=== PATIENT | female | born 2000 ===

== ENCOUNTER 2018-01-11 12:49 | Inpatient (IN) | payer MEDICAID ==
[~2018-01-11] VITALS: Ht 152.4 cm; Wt 43.6 kg
[2018-01-11 13:46] LABS: BASOPHIL % 0.1 % (0-2)
[2018-01-11 13:52] LABS: CALCIUM 9.7 mg/dL (8.5-10.1); CARBON DIOXIDE 27.4 mmol/L (21-32); CHLORIDE SERUM 94 mmol/L (98-107); CREATININE SERUM 0.8 mg/dL (0.6-1.0); GFR1 > 60 mL/min; GLUCOSE SERUM 98 mg/dL (74-106); POTASSIUM SERUM 3.1 mmol/L (3.5-5.1); SODIUM SERUM 136 mmol/L (136-145)
[2018-01-11 13:57] LABS: PLATELET COUNT 727 x10^3mcL (130-400); RED CELL DISTRIBUTION WIDTH 15.4 % (11.5-14.5)
[2018-01-11 13:59] LABS: ALBUMIN 3.8 g/dL (3.4-5.0); ALKALINE PHOSPHATASE 168 U/L (46-116); ALT/SGPT 46 U/L (14-59); AST/SGOT 71 U/L (15-37); BILIRUBIN TOTAL 0.4 mg/dL (0.20-1.00); LIPASE 85 IU/L (73-393); TOTAL PROTEIN, SERUM 8.6 g/dL (6.4-8.2)
[2018-01-11] MEDS ORDERED: PLAQUENIL200 MG PO (15:58)
[2018-01-11] MEDS ORDERED: PREDNISONE20 MG PO (15:58)
[2018-01-11 16:15] LABS: UA SPECIFIC GRAVITY >=1.030 (1.005-1.035); microscopic required? YES; urine erythrocyte 3+ (NEGATIVE)
[2018-01-11] MEDS ORDERED: IMURAN50 MG PO (16:41)
[2018-01-11 17:36] LABS: FREE T4 1.42 ng/dL (0.76-1.46); FREE THYROXINE INDEX 3.8 ug/dL (1.4-4.5); T4(THYROXINE) 10.6 ug/dL (4.7-13.3)
[2018-01-11 17:38] LABS: CHOLESTEROL/HDL RATIO 3.6; MAGNESIUM 2.6 mg/dL (1.8-2.4); PHOSPHOROUS 3.1 mg/dL (2.5-4.9)
[2018-01-11 18:27] VITALS: BP 112/73
[2018-01-11 20:25] LABS: AMPHETAMINE QUAL UR NONE DETECTED (NEG <=1000)
[2018-01-11 21:31] VITALS: BP 125/76
[2018-01-12 06:00] VITALS: BP 99/59
[2018-01-12 06:57] LABS: BASOPHIL % 0 % (0-2); RED CELL DISTRIBUTION WIDTH 15.5 % (11.5-14.5)
[2018-01-12 06:58] LABS: PLATELET COUNT 638 x10^3mcL (130-400)
[2018-01-12 06:59] LABS: CALCIUM 8.5 mg/dL (8.5-10.1); CARBON DIOXIDE 23.4 mmol/L (21-32); CHLORIDE SERUM 102 mmol/L (98-107); CREATININE SERUM 0.9 mg/dL (0.6-1.0); GFR1 > 60 mL/min; GLUCOSE SERUM 98 mg/dL (74-106); MAGNESIUM 2.4 mg/dL (1.8-2.4); PHOSPHOROUS 2.7 mg/dL (2.5-4.9); POTASSIUM SERUM 3.6 mmol/L (3.5-5.1); SODIUM SERUM 139 mmol/L (136-145)
[2018-01-12 08:05] VITALS: Ht 152.4 cm; Wt 43.6 kg
[2018-01-12 09:50] VITALS: BP 112/73
[2018-01-12 13:29] VITALS: BP 122/80
[2018-01-12 16:30] VITALS: BP 110/62
[2018-01-12 20:59] VITALS: BP 125/59
[2018-01-13 05:08] VITALS: BP 112/73
[2018-01-13 06:45] LABS: BASOPHIL % 0 % (0-2); PLATELET COUNT 623 x10^3mcL (130-400); RED CELL DISTRIBUTION WIDTH 15.6 % (11.5-14.5)
[2018-01-13 06:52] LABS: CALCIUM 8.5 mg/dL (8.5-10.1); CARBON DIOXIDE 23.2 mmol/L (21-32); CHLORIDE SERUM 106 mmol/L (98-107); CREATININE SERUM 0.7 mg/dL (0.6-1.0); GFR1 > 60 mL/min; GLUCOSE SERUM 110 mg/dL (74-106); POTASSIUM SERUM 3.1 mmol/L (3.5-5.1); SODIUM SERUM 142 mmol/L (136-145)
[2018-01-13 09:45] VITALS: BP 118/76
[2018-01-13 13:33] VITALS: BP 117/65
[2018-01-13 17:46] VITALS: BP 115/71
[2018-01-13 20:47] VITALS: BP 109/68
[2018-01-13 20:48] VITALS: BP 109/68
[2018-01-14 06:02] VITALS: BP 106/72
[2018-01-14 07:34] LABS: BASOPHIL % 0 % (0-2); PLATELET COUNT 604 x10^3mcL (130-400); RED CELL DISTRIBUTION WIDTH 16.1 % (11.5-14.5)
[2018-01-14 07:47] LABS: CALCIUM 8.4 mg/dL (8.5-10.1); CARBON DIOXIDE 24.4 mmol/L (21-32); CHLORIDE SERUM 106 mmol/L (98-107); CREATININE SERUM 0.7 mg/dL (0.6-1.0); GFR1 > 60 mL/min; GLUCOSE SERUM 102 mg/dL (74-106); SODIUM SERUM 140 mmol/L (136-145)
[2018-01-14 07:52] LABS: POTASSIUM SERUM 2.8 mmol/L (3.5-5.1)
[2018-01-14 08:54] VITALS: BP 115/78
[2018-01-14 13:01] VITALS: BP 112/61
[2018-01-14 16:38] LABS: CALCIUM 8.3 mg/dL (8.5-10.1); CARBON DIOXIDE 22.4 mmol/L (21-32); CHLORIDE SERUM 109 mmol/L (98-107); CREATININE SERUM 0.7 mg/dL (0.6-1.0); GFR1 > 60 mL/min; GLUCOSE SERUM 91 mg/dL (74-106); POTASSIUM SERUM 3.7 mmol/L (3.5-5.1); SODIUM SERUM 142 mmol/L (136-145)
[2018-01-14 17:16] VITALS: BP 121/81
[2018-01-14 20:38] VITALS: BP 112/70
[2018-01-15 05:41] VITALS: BP 113/74
[2018-01-15 06:32] LABS: CALCIUM 8.2 mg/dL (8.5-10.1); CARBON DIOXIDE 22.9 mmol/L (21-32); CHLORIDE SERUM 108 mmol/L (98-107); CREATININE SERUM 0.6 mg/dL (0.6-1.0); GFR1 > 60 mL/min; GLUCOSE SERUM 112 mg/dL (74-106); POTASSIUM SERUM 3.7 mmol/L (3.5-5.1); SODIUM SERUM 141 mmol/L (136-145)
[2018-01-15 07:13] LABS: BASOPHIL % 0 % (0-2); PLATELET COUNT 514 x10^3mcL (130-400); RED CELL DISTRIBUTION WIDTH 16.2 % (11.5-14.5)
[2018-01-15 09:57] VITALS: BP 113/76
[2018-01-15 12:53] VITALS: BP 119/84
[2018-01-15 16:54] VITALS: BP 114/75
[2018-01-15 19:47] VITALS: BP 109/75
[2018-01-16 06:08] VITALS: BP 118/76
[2018-01-16 06:53] LABS: CALCIUM 8.3 mg/dL (8.5-10.1); CARBON DIOXIDE 21.7 mmol/L (21-32); CHLORIDE SERUM 109 mmol/L (98-107); CREATININE SERUM 0.6 mg/dL (0.6-1.0); GFR1 > 60 mL/min; GLUCOSE SERUM 119 mg/dL (74-106); MAGNESIUM 2.2 mg/dL (1.8-2.4); PHOSPHOROUS 2.8 mg/dL (2.5-4.9); POTASSIUM SERUM 4.1 mmol/L (3.5-5.1); SODIUM SERUM 139 mmol/L (136-145)
[2018-01-16 07:36] LABS: BASOPHIL % 0 % (0-2); PLATELET COUNT 502 x10^3mcL (130-400); RED CELL DISTRIBUTION WIDTH 15.8 % (11.5-14.5)
[2018-01-16 09:55] VITALS: BP 119/78
[2018-01-16 17:24] VITALS: BP 117/79
[2018-01-16 21:03] VITALS: BP 133/85
[2018-01-16 21:05] VITALS: BP 121/76
[2018-01-17 04:48] VITALS: BP 118/72
[2018-01-17 06:19] LABS: CALCIUM 8.7 mg/dL (8.5-10.1); CARBON DIOXIDE 25.5 mmol/L (21-32); CHLORIDE SERUM 107 mmol/L (98-107); CREATININE SERUM 0.6 mg/dL (0.6-1.0); GFR1 > 60 mL/min; GLUCOSE SERUM 122 mg/dL (74-106); POTASSIUM SERUM 3.9 mmol/L (3.5-5.1); SODIUM SERUM 141 mmol/L (136-145)
[2018-01-17 07:03] LABS: BASOPHIL % 0.1 % (0-2)
[2018-01-17 07:12] LABS: PLATELET COUNT 522 x10^3mcL (130-400); RED CELL DISTRIBUTION WIDTH 15.7 % (11.5-14.5)
[2018-01-17 09:46] VITALS: BP 110/77
[2018-01-17 16:44] VITALS: BP 119/89
[2018-01-17 20:49] VITALS: BP 118/76
[2018-01-18 05:44] VITALS: BP 120/85
[2018-01-18 06:11] LABS: CALCIUM 8.5 mg/dL (8.5-10.1); CARBON DIOXIDE 23.5 mmol/L (21-32); CHLORIDE SERUM 108 mmol/L (98-107); CREATININE SERUM 0.6 mg/dL (0.6-1.0); GFR1 > 60 mL/min; GLUCOSE SERUM 107 mg/dL (74-106); POTASSIUM SERUM 3.9 mmol/L (3.5-5.1); SODIUM SERUM 141 mmol/L (136-145)
[2018-01-18 06:17] LABS: BASOPHIL % 0 % (0-2); RED CELL DISTRIBUTION WIDTH 15.4 % (11.5-14.5)
[2018-01-18 07:51] LABS: rbc morphology (normal/abnorm) NORMAL (NORMAL)
[2018-01-18 08:02] LABS: PLATELET COUNT 502 x10^3mcL (130-400)
[2018-01-18 09:20] VITALS: BP 113/80
== END 2018-01-18 16:19 | disposition left against medical advice (07) | DRG 346 ==
LOC: ED 12:49 → DU 15:04 → MU 15:04 → DU 17:58 → MU 01-15 07:54
PROVIDERS: Emergency Medicine; Family Medicine
DX: M32.9 Systemic lupus erythematosus, unspecified (principal); N17.0 Acute kidney failure with tubular necrosis; K52.9 Noninfective gastroenteritis and colitis, unspecified; E87.2 Acidosis; E86.0 Dehydration; E87.6 Hypokalemia; F32.9 Major depressive disorder, single episode, unspecified; F41.9 Anxiety disorder, unspecified; R31.9 Hematuria, unspecified; Z53.21 Procedure and treatment not carried out due to patient leaving prior to being seen by health care provider; G47.00 Insomnia, unspecified; D47.3 Essential (hemorrhagic) thrombocythemia; D64.9 Anemia, unspecified; N39.0 Urinary tract infection, site not specified; K20.9 Esophagitis, unspecified; E87.8 Other disorders of electrolyte and fluid balance, not elsewhere classified; R82.4 Acetonuria
CPT/HCPCS: 83880; 84439; A9698; J0696; J1100; J1200; J1885; J1956; J2060; J2405; J2550; J2765; J2920; J2930; J3010; J3480; J3490; J7030; J7500; J7512; Q0092; Q0164; Q9966; Q9967

== ENCOUNTER 2018-03-02 10:20 | Emergency (ER) | payer MEDICAID ==
[~2018-03-02] VITALS: Ht 152.4 cm; Wt 41.7 kg
[~2018-03-02 10:20] MED LIST: IMURAN50 MG PO; PLAQUENIL200 MG PO; PREDNISONE20 MG PO
[2018-03-02 10:28] VITALS: Ht 152.4 cm; Wt 41.7 kg
[2018-03-02 11:09] VITALS: BP 96/62
== END 2018-03-02 11:09 | disposition home or self-care (01) ==
LOC: ED 10:20
DX: M32.8 Other forms of systemic lupus erythematosus (principal); L30.9 Dermatitis, unspecified
CPT/HCPCS: J7512